=== PATIENT | male | born 1995 | race African-American/Black ===

== ENCOUNTER 2023-07-30 23:57 | Emergency (ER) | payer OTHER ==
[2023-07-31 00:02] VITALS: BMI 23.0
[2023-07-31] MEDS ORDERED: ACETAMINOPHEN 325 MG TABLET (FP) PO STA (01:43)
[2023-07-31] MEDS ORDERED: ACETAMINOPHEN 325 MG TABLET (FP) ONE (01:51)
[2023-07-31] MEDS ORDERED: LIDOCAINE 5% TOPICAL PATCH TP ONE (02:33)
[2023-07-31] MEDS ORDERED: LIDOCAINE 4% PATCH TP ONE (02:38)
[2023-07-31 03:06] LABS: PH,URINE 5.5 (5.0-8.0); URINE APPEARANCE CLEAR; URINE BILIRUBIN NEGATIVE (NEGATIVE); URINE COLOR YELLOW; URINE GLUCOSE (UA) NEGATIVE (NEGATIVE); URINE KETONE NEGATIVE (NEGATIVE); URINE LEUK ESTERASE NEGATIVE (NEGATIVE); URINE NITRITE NEGATIVE (NEGATIVE); URINE PROTEIN NEGATIVE (NEGATIVE); URINE UROBILINOGEN 0.2 mg/dL (0.2-1.0)
[2023-07-31 04:08] VITALS: BP 135/86; PULSE 96; RESP 18; TEMP 97.6
[2023-07-31] MEDS ORDERED: LIDOCAINE PATCH REMOVAL MC ONE (15:00)
== END 2023-07-31 04:40 | disposition home or self-care (01) ==
LOC: JER 23:57
DX: M54.6 Pain in thoracic spine (principal); R05.9 Cough, unspecified; R09.81 Nasal congestion; R50.9 Fever, unspecified; Z20.822 Contact with and (suspected) exposure to COVID-19
CPT/HCPCS: 0241U-QW; 71046-TC-FY; 81003; 87086; 99284-25